=== PATIENT | female | born 1955 | race Caucasian/White ===

== ENCOUNTER 2019-08-10 08:07 | Day surgery (SDC) | payer BC, OTHER ==
[~2019-08-10] VITALS: Ht 167.6 cm; Wt 66.1 kg
[~2019-08-10 08:07] MED LIST: BACITRACIN 50,000 UNIT ONE; BACITRACIN OINT 500U/GM, 15 GM ONE; EPINEPHRINE TOPICAL SOLN 1 MG/ML, 30ML ONE; FLUORESCEIN SODIUM 500 MG/5 ML ONE; LIDOCAINE 1%-EPI 1:100K, 20ML ONE; LISI-167 PO; OXYMETAZOLINE NASAL SPRAY 0.05%, 15ML ONE
[2019-08-10] MEDS ORDERED: FENTANYL PF 250 MCG/5ML ONE (08:10)
[2019-08-10] MEDS ORDERED: MIDAZOLAM 1 MG/ML, 2ML ONE (08:10)
[2019-08-10] MEDS ORDERED: ROCURONIUM 10MG/ML,5ML ONE (08:11)
[2019-08-10] MEDS ORDERED: PROPOFOL 10 MG/ML, 20ML ONE (08:13)
[2019-08-10] MEDS ORDERED: DEXAMETHASONE 4 MG/ML, 1ML ONE ×2 (08:19)
[2019-08-10] MEDS ORDERED: ONDANSETRON 2MG/ML, 2ML ONE ×2 (08:19→11:00)
[2019-08-10] MEDS ORDERED: CEFAZOLIN 1,000 MG ONE ×2 (08:19)
[2019-08-10 08:52] VITALS: BP 127/74
[2019-08-10] MEDS ORDERED: LACTATED RINGERS 1,000 ML IV SCH (08:55)
[2019-08-10] MEDS ORDERED: LIDOCAINE 4%, 4 ML SYR/CANN TP ONE (10:15)
[2019-08-10] MEDS ORDERED: hydrALAzine 20 MG/ML, 1ML IV PRN (10:30)
[2019-08-10] MEDS ORDERED: LORazepam 2 MG/ML, 1ML IVPush PRN (10:30)
[2019-08-10] MEDS ORDERED: ONDANSETRON 2MG/ML, 2ML IV PRN (10:30)
[2019-08-10] MEDS ORDERED: LABETALOL 5MG/ML, 20ML IV PRN (10:30)
[2019-08-10] MEDS ORDERED: MEPERIDINE/PF 25MG/ML,1ML IVPush PRN (10:30)
[2019-08-10] MEDS ORDERED: ACETAMINOPHEN 325 MG TABLET PO PRN (10:30)
[2019-08-10] MEDS ORDERED: HYDROmorphone 2 MG/ML, 1ML IVPush PRN (10:30)
[2019-08-10] MEDS ORDERED: METOCLOPRAMIDE 5 MG/ML, 2ML IV PRN (10:30)
[2019-08-10] MEDS ORDERED: EPHEDRINE 50 MG/ML, 1ML ONE (11:00)
[2019-08-10] MEDS ORDERED: GLYCOPYRROLATE 0.2MG/1ML, 5ML ONE (11:00)
[2019-08-10] MEDS: FENTANYL PF 100 MCG/2ML IV PRN ×3 (12:30→13:10)
[2019-08-10] MEDS ORDERED: FENTANYL PF 100 MCG/2ML ONE (12:30)
[2019-08-10] MEDS ORDERED: OXYcodone 5 MG/5 ML ORAL.SOL UDC ONE (12:47)
[2019-08-10] MEDS ORDERED: ACETAMINOPHEN 650 MG/20.3 ML UDC ONE (12:47)
[2019-08-10] MEDS: OXYcodone 5 MG/5 ML ORAL.SOL UDC PO PRN ×2 (13:00→15:42)
== END 2019-08-10 16:05 | disposition home or self-care (01) ==
LOC: OUT 08:07
PROVIDERS: ATTEND Otolaryngology
DX: J01.01 Acute recurrent maxillary sinusitis (principal); J32.0 Chronic maxillary sinusitis; J34.2 Deviated nasal septum; I10 Essential (primary) hypertension; G47.33 Obstructive sleep apnea (adult) (pediatric); Z88.1 Allergy status to other antibiotic agents; Z88.8 Allergy status to other drugs, medicaments and biological substances; Z91.041 Radiographic dye allergy status
CPT/HCPCS: 30520; 31255; 31267; 88304; 88311; J0690; J1100; J2250; J2405; J2704; J3010; J3490; J7120